=== PATIENT | female | born 1965 | race African-American/Black ===

== ENCOUNTER 2020-12-05 20:28 | Emergency (ER) | payer SELFPAY ==
[~2020-12-05] VITALS: Ht 177.8 cm; Wt 69.0 kg
[2020-12-06 00:12] LABS: BASOPHILS % 0.2 % (0.0-2.0); HEMATOCRIT. 35.6 % (36.0-48.0); HEMOGLOBIN. 11.8 g/dL (12.0-16.0); LYMPHOCYTES % 15.3 % (20.0-50.0); MEAN CORPUSCULAR VOLUME 78.3 fL (81.0-99.0); MEAN PLATELET VOLUME 7.9 fl (7.4-10.4); MONOCYTES % 3.3 % (2.0-8.0); NEUTROPHILS % 81.2 % (40.0-76.0); PLATELET 413 x1000/uL (130-400); RED BLOOD CELL COUNT 4.54 mill/uL (4.2-5.4); RED CELL DISTRIBUTION WIDTH 14.3 % (11.6-14.6)
[2020-12-06 00:22] LABS: CHLORIDE 102 mEq/L (98-107)
[2020-12-06 00:26] LABS: ETHANOL BLOOD < 10 mg/dL
[2020-12-06] MEDS ORDERED: LORAZEPAM 2MG/ML CPJ IM PRN (00:45)
[2020-12-06] MEDS ORDERED: ZIPRASIDONE MESYLATE 20MG/VIAL IM ONE (01:00)
[2020-12-06 03:36] LABS: *BARBITURATES SCREEN URINE NEGATIVE (NEGATIVE); *BENZODIAZEPINES SCREEN URINE PRESUMTIVE POSITIVE (NEGATIVE); *COCAINE SCREEN URINE NEGATIVE (NEGATIVE); CANNABINOID URINE SCREEN PRESUMTIVE POSITIVE (NEGATIVE); METHADONE URINE SCREEN NEGATIVE (NEGATIVE); OPIATES URINE SCREEN NEGATIVE (NEGATIVE); PHENCYCLIDINE URINE SCREEN NEGATIVE (NEGATIVE)
[2020-12-06 03:37] LABS: *AMPHETAMINES SCREEN URINE NEGATIVE (NEGATIVE)
[2020-12-06 12:06] VITALS: BP 132/86
== END 2020-12-06 12:07 | disposition home or self-care (01) ==
LOC: ER 20:28
DX: R46.2 Strange and inexplicable behavior (principal); Z86.73 Personal history of transient ischemic attack (TIA), and cerebral infarction without residual deficits
CPT/HCPCS: 36415; 80053; 80305; 80307; 80320; 80329; 85025; 93005; 96372; 99285; J2060; J3486; G0480